=== PATIENT | female | born 1945 | race Caucasian/White ===

== ENCOUNTER 2020-02-13 07:42 | Day surgery (SDC) | payer MEDICARE, OTHER ==
[~2020-02-13] VITALS: Ht 162.6 cm; Wt 104.8 kg
[~2020-02-13 07:42] MED LIST: ACYCLOVIR200 MG PO; AMLODIPINE BESY10 MG PO; AZASAN75 MG PO; B-COMPLEX FOL400 MCG PO; B100 BALANCED100 MG PO; C-10001000 MG PO; CALTRATE 600 +1 EAC1 PO; CO Q-10100 MG PO; GENGRAF25 MG PO; HAWTHORN BERRY500 MG PO; LISINOPRIL40 MG PO; MAGNESIUM400 MG PO; MAPAP500 MG PO; MILK THISTLE175 MG PO; PERCOCET 7.5-31 EACH PO; PREDNISONE5 MG PO; SELENIUM200 MC2 PO; SLO-NIACIN500 MG PO; VITAMIN A8000 UNIT PO; VITAMIN B125000 MCG PO; VITAMIN E400 UNI3 PO; ZINC50 M1 PO
[2020-02-13] MEDS ORDERED: OMEPRAZOLE20 MG PO (08:41)
--- NOTE | 2020-02-13 09:48 | NUR ---
CBG CHECKED PER MD ORDER. BLOOD SUGAR IS 75MG/DL. ORDERS RECIEVED TO CHANGE FLUIDS TO D5LR.
--- NOTE | 2020-02-13 11:55 | NUR ---
02/13/20 1155 Letty Devi 1114 PT ARRIVED IN PACU AWAKE WITH NO C/O'S. 1125 DR AT BEDSIDE TALKING TO PT. 1130 DC INSTRUCTIONS GIVEN. ALL QUESTIONS ANSWERED. 1140 LEFT VIA W/C. INSTRUCTIONS GIVEN TO SPOUSE AT CAR.
--- NOTE | 2020-02-14 08:49 | OR ---
[facility] [address], [place] [address] Signed DATE OF OPERATION: 02/13/2020 SURGEON: Sukhi Valdes MD PREOPERATIVE DIAGNOSES: 1. Father with a history of colonic polyps. 2. Diverticulosis. 3. Personal history of hyperplastic rectal polyps. POSTOPERATIVE DIAGNOSES: 1. Moderate sigmoid diverticulosis. 2. Minimal internal and external hemorrhoids. 3. Small perianal skin tags. PROCEDURE: Colonoscopy without biopsy. ESTIMATED BLOOD LOSS: None. 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 She actually done very well ever since. She does take a little prednisone every day and therefore has adrenal insufficiency. Consequently, we gave her 60 mg of Solu-Medrol IV prior to the procedure. In addition, she has had a knee replacement, so she received Ancef prior to the procedure as well. She came in the office for a followup colonoscopy. We know her father had colonic polyps removed and I was asked to follow up every 5 years. Irving also has diverticulosis along with a personal history of hyperplastic rectal polyps. In the meantime, she said she is doing great and has no lower GI complaints. In the office, I gave her a pamphlet on colonoscopy and she understands the nature of the test along with the risks including, but not limited to gas bloating, crampy abdominal pain, bleeding, perforation requiring surgery, and missed diagnosis. She also understands the need for IV conscious sedation. She had expressed understanding and wished to proceed. DESCRIPTION OF PROCEDURE: Irving was taken into our endoscopy suite and placed in the left lateral decubitus position. She was given IV sedation with 75 mcg of fentanyl and 4 mg of Versed. She did receive Ancef and Solu-Medrol preoperatively. A digital rectal exam was performed and she had several small perianal skin tags. Very small external hemorrhoids. Good Electronically Signed By: SUKHI VALDES MD 02/14/20 0849 PATIENT NAME: IRVING WILL OPERATIVE REPORT DATE OF : 49 REPORT #: [id number] PHYSICIAN: SUKHI VALDES MD PCP: OTHER PCP REPORT IS CONFIDENTIAL AND NOT TO BE RELEASED WITHOUT AUTHORIZATION [facility] [address] [place] [id number] Signed sphincter tone. The adult colonoscope was introduced and advanced under direct visualization of camera into the cecum itself without difficulty. Her prep was quite excellent. We could easily see the appendiceal orifice and the ileocecal valve. We took pictures throughout for photodocumentation. The scope had been slowly withdrawn. She does have moderate left-sided diverticulosis. They were moderate in size, moderate in number, and scattered about. No polyps in the colon or rectum on this occasion. Upon retroflexion of scope, she has very tiny internal hemorrhoid tissue. After this, the gas was suctioned out and the colonoscope removed. Irving tolerated the procedure quite well. RECOMMENDATIONS: Irving can follow up in 5 years for a repeat colonoscopy. Sukhi Valdes MD ALB/MODL /[id number] cc: Sukhi Valdes MD [facility] MD Soco Holcomb PA Copies: SUKHI VALDES MD,BARBIE VAZ ~ Electronically Signed By: SUKHI VALDES MD 02/14/20 0849 PATIENT NAME: IRVING WILL OPERATIVE REPORT DATE OF : 49 REPORT #: [id number] PHYSICIAN: SUKHI VALDES MD PCP: OTHER PCP REPORT IS CONFIDENTIAL AND NOT TO BE RELEASED WITHOUT AUTHORIZATION
== END 2020-02-13 11:40 | disposition home or self-care (01) ==
LOC: OPS 07:42 → DS 07:42 → OPS 09:45 → DS 09:45 → OPS 11:40
PROVIDERS: ATTEND Colon & Rectal Surgery
PROC: 0DJD8ZZ Inspection of Lower Intestinal Tract, Via Natural or Artificial Opening Endoscopic (ICD-10-PCS; principal; 2020-02-13 09:45)
DX: K64.8 Other hemorrhoids (principal); K64.4 Residual hemorrhoidal skin tags; K57.30 Diverticulosis of large intestine without perforation or abscess without bleeding; I10 Essential (primary) hypertension; D64.9 Anemia, unspecified; Z86.010 Personal history of colon polyps; Z83.71 Family history of colonic polyps; Z94.4 Liver transplant status; Z79.899 Other long term (current) drug therapy; Z88.5 Allergy status to narcotic agent
CPT/HCPCS: J0690; J2250; J2930; J3010; J7121